=== PATIENT | female | born 1970 | race Caucasian/White ===

== ENCOUNTER 2016-10-01 18:59 | Emergency (ER) | payer OTHER ==
[~2016-10-01] VITALS: Wt 45.4 kg
[~2016-10-01 18:59] MED LIST: ACETAMINOPHEN325 MG PEG; ALBUTEROL 3 ML 33 ML INH; ALBUTEROL2.5 MG/0.5 INH; ARTIFICIAL TEAR15 M1 OPH; ARTIFICIAL TEAR15 M1 OU; BACLOFEN10 MG PEG; BACTROBAN22 TP; CEFEPIME2 GM/100 M IV; CEPHULAC10 GM/15 M PEG; CEPHULAC10 GM/151 PO; CIPRO500 MG PO; CIPROFLOXA500 MG/5 M PO; CLARITIN10 MG PO; DUONEB 3 MG/3 ML3 M1 INH; FORTAZ1 GM IV; JEVITY 1.2 CAL240 ML PEG; JEVITY CAL GT; JEVITY CAL PO; KENALOG0.5% T; KEPPRA1000 MG PEG; KEPPRA500 MG PO; LACTULOSE10 GM/15 M PO; LEVETIRACETAM1000 MG PO; LIORESAL10 MG PO; LOPRESSOR25 MG PO; LOVENOX30 MG/0.3 SC; Lovenox40 MG/0.4 SC; MERREM IV1 GM IV; METAMUCIL1 PDR PO; METAMUCIL1 WAF PEG; MOM30 ML PEG; MOTRIN100 MG/5 M PEG; MOTRIN600 MG PO; NEBCIN40 MG/ML IV; NORMAL SALINE1000 M1 IV; POTASSIUM20 MEQ PEG; POTASSIUM25 MEQ PO; SOLU-MEDROL40 MG IV; TOBRADEX 0.1%-01 OI1 OS; TOBRAMYCIN IV; TYLENOL325 M1 PEG; VITAMIN D32000 I1; VITAMIN D32000 I1 PO; VITAMINS & MINE1 TAB PEG; ZOSYN 3.373.375 GM/5 IV; ZYVOX600 MG PO
[2016-10-01 19:10] VITALS: BP 140/82
== END 2016-10-01 19:42 | disposition home or self-care (01) ==
LOC: ED 18:59
DX: K94.23 Gastrostomy malfunction (principal); Z88.0 Allergy status to penicillin; Z88.2 Allergy status to sulfonamides; Z88.8 Allergy status to other drugs, medicaments and biological substances; Z79.899 Other long term (current) drug therapy

== ENCOUNTER 2016-10-03 07:30 | Emergency (ER) | payer OTHER ==
[~2016-10-03] VITALS: Wt 63.5 kg
[2016-10-03 07:38] VITALS: BP 125/75
== END 2016-10-03 12:29 | disposition home or self-care (01) ==
LOC: ED 07:30
DX: K94.23 Gastrostomy malfunction (principal); Z88.0 Allergy status to penicillin; Z88.2 Allergy status to sulfonamides; Z88.8 Allergy status to other drugs, medicaments and biological substances; Z79.899 Other long term (current) drug therapy

== ENCOUNTER 2017-04-09 16:51 | Emergency (ER) | payer OTHER ==
[~2017-04-09] VITALS: Wt 61.2 kg
[2017-04-09 17:46] LABS: BASO # 0.1 10*3/uL (0.0-0.1); BASO % 0.6 % (0.0-1.0); EOS # 0.4 10*3/uL (0.0-0.4); EOS % 2.9 % (1.0-4.0); HEMATOCRIT 39.8 % (37.0-47.0); HEMOGLOBIN 12.4 g/dl (12.0-16.0); LYMPH # 2.6 10*3/uL (1.3-4.4); LYMPH % 19.4 % (27.0-41.0); MEAN CELL VOLUME 85.4 fl (81.0-99.0); MEAN CORPUSCULAR HGB 26.6 pg (27.0-31.0); MEAN CORPUSCULAR HGB CONC 31.2 g/dl (33.0-37.0); MEAN PLATELET VOLUME 10.2 fl (9.6-12.3); MONO # 0.9 10*3/uL (0.1-1.0); MONO % 6.5 % (3.0-9.0); NEUT # 9.3 10*3/uL (2.3-7.9); NEUT % 69.8 % (47.0-73.0); PLATELET COUNT AUTOMATED 507 10*3/uL (130-400); RED BLOOD COUNT 4.66 10*6/uL (4.10-5.10); RED CELL DISTRI WIDTH 15.7 % (0-14.5); WHITE BLOOD COUNT 13.3 10*3/uL (4.8-10.8)
[2017-04-09 18:03] LABS: ALBUMIN 3.2 gm/dl (3.1-4.5); ALKALINE PHOSPHATASE 105 U/L (45-117); BUN 10 mg/dl (7-24); CHLORIDE 98 mmol/L (98-107); CREATININE 0.49 mg/dL (0.55-1.02); POTASSIUM 3.9 mmol/L (3.5-5.1); SGOT/AST 43 IU/L (3-35); SGPT/ALT 32 U/L (12-78); SODIUM 136 mmol/L (136-145); TOTAL PROTEIN 9.6 gm/dL (6.4-8.2)
[2017-04-09 19:43] LABS: BILIRUBIN NEGATIVE (NEGATIVE); BLOOD 3+ (NEGATIVE); CLARITY CLOUDY (CLEAR); COLOR YELLOW (YELLOW); GLUCOSE NEGATIVE (NEGATIVE); KETONE NEGATIVE (NEGATIVE); LEUKO ESTERASE 3+ (NEGATIVE); NITRITE NEGATIVE (NEGATIVE); PH 7.5 (5.0-9.0); UROBILINOGEN 0.2 E.U./dl (0.2-1.0)
[2017-04-09 19:51] VITALS: BP 142/84
[2017-04-09 19:59] LABS: BACTERIA 3+; WBC 31-40 wbc/hpf (0-5)
[2017-04-09] MEDS ORDERED: CIPRO500 MG/5 M PO (20:12)
== END 2017-04-09 20:21 | disposition home or self-care (01) ==
LOC: ED 16:51
PROVIDERS: Physician Assistant
DX: N39.0 Urinary tract infection, site not specified (principal); R31.9 Hematuria, unspecified; Z79.899 Other long term (current) drug therapy; Z88.0 Allergy status to penicillin; Z88.2 Allergy status to sulfonamides; Z88.8 Allergy status to other drugs, medicaments and biological substances; Z88.6 Allergy status to analgesic agent

== ENCOUNTER 2017-07-28 21:36 | Emergency (ER) | payer OTHER ==
[~2017-07-28] VITALS: Ht 160 cm; Wt 62.6 kg
[2017-07-28 21:36] VITALS: BP 142/89
[~2017-07-28 21:36] MED LIST changes: +CIPRO500 MG/5 M PO
== END 2017-07-28 22:30 | disposition home or self-care (01) ==
LOC: ED 21:36
DX: K94.23 Gastrostomy malfunction (principal); Z79.899 Other long term (current) drug therapy; Z88.0 Allergy status to penicillin; Z88.2 Allergy status to sulfonamides; Z88.6 Allergy status to analgesic agent; Z88.8 Allergy status to other drugs, medicaments and biological substances

== ENCOUNTER 2018-04-03 14:16 | Emergency (ER) | payer OTHER ==
[~2018-04-03] VITALS: Wt 63.5 kg
[2018-04-03 14:19] VITALS: BP 139/94
== END 2018-04-03 15:51 | disposition home or self-care (01) ==
LOC: ED 14:16
DX: K94.29 Other complications of gastrostomy (principal); Z88.0 Allergy status to penicillin; Z88.2 Allergy status to sulfonamides; Z88.8 Allergy status to other drugs, medicaments and biological substances; Z88.6 Allergy status to analgesic agent; Z79.899 Other long term (current) drug therapy; Z93.0 Tracheostomy status

== ENCOUNTER 2019-06-23 16:13 | Inpatient (IN) | payer OTHER ==
[~2019-06-23] VITALS: Ht 160 cm; Wt 51.3 kg
[2019-06-23 16:18] VITALS: BP 133/97
[2019-06-23 17:13] LABS: BASO # 0.1 10*3/uL (0.0-0.1); BASO % 0.8 % (0.0-1.0); EOS # 0.3 10*3/uL (0.0-0.4); HEMATOCRIT 41.6 % (37.0-47.0); HEMOGLOBIN 12.8 g/dl (12.0-16.0); LYMPH # 2.8 10*3/uL (1.3-4.4); LYMPH % 19.5 % (27.0-41.0); MEAN CELL VOLUME 87.4 fl (81.0-99.0); MEAN CORPUSCULAR HGB 26.9 pg (27.0-31.0); MEAN CORPUSCULAR HGB CONC 30.8 g/dl (33.0-37.0); MEAN PLATELET VOLUME 10.6 fl (9.6-12.3); MONO # 0.8 10*3/uL (0.1-1.0); MONO % 5.7 % (3.0-9.0); NEUT # 10.2 10*3/uL (2.3-7.9); PLATELET COUNT AUTOMATED 521 10*3/uL (130-400); RED BLOOD COUNT 4.76 10*6/uL (4.10-5.10); WHITE BLOOD COUNT 14.3 10*3/uL (4.8-10.8)
[2019-06-23 17:23] LABS: ACT PARTIAL THROMBO TIME 25.2 SECONDS (20.0-32.1)
[2019-06-23 17:30] LABS: ALBUMIN 3.2 gm/dl (3.1-4.5); ALKALINE PHOSPHATASE 110 U/L (45-117); BUN 11 mg/dl (7-24); CHLORIDE 103 mmol/L (98-107); CREATININE 0.57 mg/dL (0.55-1.02); LIPASE 151 U/L (73-393); POTASSIUM 4.2 mmol/L (3.5-5.1); SGOT/AST 11 IU/L (3-35); SGPT/ALT 18 U/L (12-78); SODIUM 135 mmol/L (136-145); TOTAL PROTEIN 9.8 gm/dL (6.4-8.2)
[2019-06-23 17:34] LABS: TROPONIN I < 0.015 ng/ml (<0.045)
--- NOTE | 2019-06-23 19:58 | NUR ---
MEDIPORT ACCESSED WITHOUT DIIFICULTY. FLUSHES FREELY, NO BLOOD RETURN. FAMILY REPORTS THAT IT IS FLUSHED EVERY 6 WEEKS, BUT DOES NOT HAVE RETURN. PROVIDER AWARE.
[2019-06-23 20:00] VITALS: BP 145/89
[2019-06-23 21:45] VITALS: BP 145/89
--- NOTE | 2019-06-23 21:45 | NUR ---
A 49, admitted to , under the services of AMANDA Ingram DO with a diagnosis of PNEUMONIA. Chief complaint is COUGH, CONGESTION. Patient arrived via wheel chair from ER. Monitor applied. Initial assessment completed. Vital signs taken and recorded. AMANDA INGRAM DO notified of admission to the unit. Orders received. See assessment for past medical history, medications and allergies. Patient and/or family oriented to unit. [facility] visitation policy reviewed. Clothing/patient valuable form completed. RAJENDRA COY
--- NOTE | 2019-06-23 23:30 | NUR ---
SPOKE TO DR. MCNEAL EARLIER & ORDER RECEIVED TO PUT IN ORDER FOR WOUND DRESSING.
[2019-06-24] VITALS: BP 140/79
--- NOTE | 2019-06-24 01:05 | NUR ---
06/23/19 23:10 PT HAS 6 SHILEY TRACH. PLACED ON 35% BOWEN, SUCTIONED FOR MODERATE AMOUNT OF THICK CLEAR SECRETIONS AND GIVEN DUONEB TX PER ORDER.
--- NOTE | 2019-06-24 02:08 | NUR ---
MEDS GIVEN EARLIER & JEVITY GIVEN PER M.D. ORDERS.
--- NOTE | 2019-06-24 03:50 | NUR ---
ORDERED RECEIVED FOR WOUND CARE ORDERS.
--- NOTE | 2019-06-24 06:27 | NUR ---
SLOAN ANGELA [id number] Please refer to the physician's history and physical for past medical history, comorbid conditions, and allergies. Diagnosis: RIGHT LOWER LOBE PNEUMONIA Ryan Score: 11,HIGH RISK WOUND DESCRIPTIONS: Wound Number: 1 Location of the wound: coccyx Type of wound: stage 2 Thickness: Partial Size: 0.2cm x 1.0cm x 0.1cm Tunneling: none Undermining: none Sinus Tract: none Presence of Exudate: Serosanguineous Amount: Light Color: Red Odor: None Periwound Skin Appearance: Scar Wound edges: approximated Pain (associated with wound): none at time of assessment How does patient state this happened? pt unable to state how this happened Wound Number: 2 Location of the wound: right buttocks Type of wound: deep tissue pressure injury Size: 3.0cm x 3.5cm x <0.1cm Tunneling: none Undermining: none Sinus Tract: none Presence of Exudate: none Amount: None Color: Purple, dark red Odor: None Periwound Skin Appearance: Normal Wound edges: closed Pain (associated with wound): none at time of assessment How does patient state this happened? pt unable to state how this happened Surface the patient is resting on: Isoflex SKIN PREVENTION RECOMMENDATION: 1. Pressure redistribution support surface as appropriate 2. Elevate heels 3. Remove boots/TEDS every shift and reapply 4. Head of bed 30 degrees as tolerated 5. Assess nutrition and hydration 6. Manage moisture 7. Avoid the use of containment devices while in bed 8. Use absorptive products on surfaces limit layers of linens on bed 9. Turn and reposition every 1-2 hours in bed and every 1 hour in chair as tolerated 10. Weight shifts every 15 minutes while up in chair 11. Offloading with pillows or device to keep heels elevated off bed 12. Monitor skin at least every shift 13. Inspect under medical devices twice a day WOUND TREATMENT RECOMMENDATIONS: Cleanse coccyx and right buttocks with soap and water and apply calazime every shift and prn for soiling. Wheelchair cushion when oob Heel raiser pro boots to bilateral feet while in bed.
[2019-06-24 07:43] LABS: BASO # 0.1 10*3/uL (0.0-0.1); BASO % 0.5 % (0.0-1.0); EOS # 0.4 10*3/uL (0.0-0.4); EOS % 3.5 % (1.0-4.0); HEMATOCRIT 38.7 % (37.0-47.0); HEMOGLOBIN 11.7 g/dl (12.0-16.0); LYMPH # 2.8 10*3/uL (1.3-4.4); LYMPH % 24.7 % (27.0-41.0); MEAN CELL VOLUME 88.4 fl (81.0-99.0); MEAN CORPUSCULAR HGB 26.7 pg (27.0-31.0); MEAN CORPUSCULAR HGB CONC 30.2 g/dl (33.0-37.0); MONO # 0.7 10*3/uL (0.1-1.0); MONO % 6.6 % (3.0-9.0); NEUT # 7.2 10*3/uL (2.3-7.9); NEUT % 63.5 % (47.0-73.0); PLATELET COUNT AUTOMATED 443 10*3/uL (130-400); RED BLOOD COUNT 4.38 10*6/uL (4.10-5.10); WHITE BLOOD COUNT 11.3 10*3/uL (4.8-10.8)
--- NOTE | 2019-06-24 07:50 | NUR ---
Dr. Kramer notified of wound care recommendations.
[2019-06-24 08:00] VITALS: BP 114/70
[2019-06-24 08:05] LABS: BUN 11 mg/dl (7-24); CHLORIDE 104 mmol/L (98-107); CHOLESTEROL 187 mg/dL (<200); CREATININE 0.64 mg/dL (0.55-1.02); HDL CHOLESTEROL 25 mg/dl (40-60); LDL CHOLESTEROL 86 mg/dL (9-159); PHOSPHOROUS 3.3 mg/dL (2.5-4.9); POTASSIUM 3.5 mmol/L (3.5-5.1); SODIUM 139 mmol/L (136-145); TRIGLYCERIDES 381 mg/dl (<150); VLDL CHOLESTEROL 76 mg/dL (6-40)
[2019-06-24 08:28] LABS: VITAMIN D, 25-HYDROXY 31.5 ng/mL (30-100)
--- NOTE | 2019-06-24 09:32 | NUR ---
ORDERED SPUTUM ON PT. RT COLLECTED FOR SPUTUM C & S. SPECIMAN SENT TO INDUSTRIAL SALES ENGINEER NOTIFIED
[2019-06-24 12:00] VITALS: BP 146/79
--- NOTE | 2019-06-24 13:55 | NUR ---
Geophysical Drafter in to talk to patient. Patient states lives at home with mom. There are no steps in the home. Physician: markus jaimes Pharmacy: [facility] Home health services: none Patient's level of ADLs: BEDFAST Patient has working utilities: all working DME: Follow-up physician's appointment after d/c: will be made by hospitalist nurse director upon discharge Does patient want to access PORTAL?: no Discharge plan discussed with patient's sister, patient is non verbal, sister stated patient lives at home with her mom, mom is her caregiver, discussed with them VNA or possilby a short term skilled, sister stated her mom would not allow her to go to a SNF and they she didn't need any home services or help at this time, case mangement will follow. MARK LOU
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
[2019-06-24 16:00] VITALS: BP 138/80
--- NOTE | 2019-06-24 19:20 | NUR ---
PT LYING IN BED AT THIS TIME. IV FLUIDS INFUSING INTO MEDIPORT WITHOUT DIFFICULTY. NO S/S OF DISTRESS. PT MOTHER AT BEDSIDE. NO CONCERNS VOICED. PT CALL LIGHT IN REACH.
[2019-06-24 20:00] VITALS: BP 131/82
--- NOTE | 2019-06-24 21:00 | NUR ---
PT LYING IN BED AT THIS TIME. MOTHER AT BEDSIDE. NO COMPLAINTS. CALL LIGHT IN REACH.
--- NOTE | 2019-06-24 23:00 | NUR ---
PT LYING IN BED. NO S/S OF DISTRESS. MOTHER AT BEDSIDE. NO COMPLAINTS VOICED.
[2019-06-25] VITALS: BP 142/88
--- NOTE | 2019-06-25 01:05 | NUR ---
WOUND ORDERS RECIEVED FROM DR. JORGENSEN
--- NOTE | 2019-06-25 02:00 | NUR ---
PT RESTING IN BED. MOTHER AT BEDSIDE. NO COMPLAINTS VOICED.
--- NOTE | 2019-06-25 04:19 | NUR ---
Mother states that she will continue for patient when she returns home and doesn't wish for patient to follow up in an outpatient facility at this time for wound care.
--- NOTE | 2019-06-25 05:34 | NUR ---
JULIO CÉSARSLOAN [id number] Please refer to the physician's history and physical for past medical history, comorbid conditions, and allergies. Diagnosis: RIGHT LOWER LOBE PNEUMONIA Ryan Score: 11,HIGH RISK WOUND DESCRIPTIONS: Wound Number: 1 Location of the wound: right great toe Type of wound: skin tear Thickness: Partial Size: 0.8cm x 0.2cm x 0.1cm Tunneling: none Undermining: none Sinus Tract: none Presence of Exudate: none Amount: None Color: Red Odor: None Periwound Skin Appearance: Normal Wound edges: approximated Pain (associated with wound): none at time of assessment How does patient state this happened? pts mother stated this was from putting socks on Surface the patient is resting on: Position Pro SKIN PREVENTION RECOMMENDATION: 1. Pressure redistribution support surface as appropriate 2. Elevate heels 3. Remove boots/TEDS every shift and reapply 4. Head of bed 30 degrees as tolerated 5. Assess nutrition and hydration 6. Manage moisture 7. Avoid the use of containment devices while in bed 8. Use absorptive products on surfaces limit layers of linens on bed 9. Turn and reposition every 1-2 hours in bed and every 1 hour in chair as tolerated 10. Weight shifts every 15 minutes while up in chair 11. Offloading with pillows or device to keep heels elevated off bed 12. Monitor skin at least every shift 13. Inspect under medical devices twice a day WOUND TREATMENT RECOMMENDATIONS: Continue skin tear guidelines to right great toe.
[2019-06-25 07:33] LABS: BASO # 0.1 10*3/uL (0.0-0.1); BASO % 0.6 % (0.0-1.0); EOS # 0.5 10*3/uL (0.0-0.4); EOS % 3.9 % (1.0-4.0); HEMATOCRIT 39.6 % (37.0-47.0); LYMPH # 2.9 10*3/uL (1.3-4.4); LYMPH % 23.8 % (27.0-41.0); MEAN CELL VOLUME 87.2 fl (81.0-99.0); MEAN CORPUSCULAR HGB 26.4 pg (27.0-31.0); MEAN CORPUSCULAR HGB CONC 30.3 g/dl (33.0-37.0); MEAN PLATELET VOLUME 11.9 fl (9.6-12.3); MONO # 0.9 10*3/uL (0.1-1.0); MONO % 7.1 % (3.0-9.0); NEUT # 7.8 10*3/uL (2.3-7.9); NEUT % 63.5 % (47.0-73.0); PLATELET COUNT AUTOMATED 375 10*3/uL (130-400); RED BLOOD COUNT 4.54 10*6/uL (4.10-5.10); RED CELL DISTRI WIDTH 14.9 % (0-14.5); WHITE BLOOD COUNT 12.3 10*3/uL (4.8-10.8)
[2019-06-25 08:00] VITALS: BP 136/70
--- NOTE | 2019-06-25 08:44 | NUR ---
Dr. Kramer notified of wound care recommendations.
--- NOTE | 2019-06-25 09:00 | NUR ---
PATIENT LYING IN BED. NO DISTRESS NOTED. MOTHER PRESENT AT BEDSIDE. VITAL SIGNS STABLE. LUNGS DIMINISHED WITH SOME SCATTERED FAINT RHONCHI. THICK, CLEAR MUCOUS PRESENTED FROM TRACH WITH COUGH. PEG TUBE PATIENT TO ABD WITH DRSG DRY/INTACT. NO EDEMA NOTED, BILAT FOOT DROP NOTED. PATIENT INCONTIENT AND WEARING BRIEF. BED ALARM ON.
--- NOTE | 2019-06-25 09:00 | NUR ---
case management visits with patient, family present, she will return home with mom when medically stable, mom declines any home services at this time
[2019-06-25 12:00] VITALS: BP 130/85; BP 135/54
[2019-06-25 16:00] VITALS: BP 127/78
--- NOTE | 2019-06-25 16:00 | NUR ---
PATIENT LYING IN BED, TURN & REPOSITION, CALAZIME CREAM APPLIED TO BUTTOCKS. MOTHER PRESENT AT BEDSIDE. NO DISTRESS NOTED.
--- NOTE | 2019-06-25 19:30 | NUR ---
TUBE FFED FINISHED AT THIS TIME, PATIENT RETAINED ALL. PLACEMENT CONFIRMED WITH AIR BOLUS, PEG-TUBE FLUSED WITH 130CC H2O FREE FLOW. CALL LIGTH WITHIN REACH
[2019-06-25 20:00] VITALS: BP 124/79
[2019-06-26] VITALS: BP 146/87
--- NOTE | 2019-06-26 01:00 | NUR ---
PATIENT TOLERATED TUBE FEED AT THIS TIME. NO DISTRESS NOTED. PLACEMENT VERIFIED BY AIR BOLUS. CALL LIGHT WITHIN REACH
--- NOTE | 2019-06-26 03:47 | NUR ---
24 HR chart check completed.
[2019-06-26 07:28] LABS: BASO # 0.1 10*3/uL (0.0-0.1); BASO % 0.6 % (0.0-1.0); EOS # 0.5 10*3/uL (0.0-0.4); EOS % 3.6 % (1.0-4.0); HEMATOCRIT 38.1 % (37.0-47.0); HEMOGLOBIN 11.4 g/dl (12.0-16.0); LYMPH % 21.4 % (27.0-41.0); MEAN CELL VOLUME 88.2 fl (81.0-99.0); MEAN CORPUSCULAR HGB 26.4 pg (27.0-31.0); MEAN CORPUSCULAR HGB CONC 29.9 g/dl (33.0-37.0); MONO # 1.1 10*3/uL (0.1-1.0); MONO % 7.8 % (3.0-9.0); NEUT % 65.4 % (47.0-73.0); PLATELET COUNT AUTOMATED 384 10*3/uL (130-400); RED BLOOD COUNT 4.32 10*6/uL (4.10-5.10); WHITE BLOOD COUNT 13.8 10*3/uL (4.8-10.8)
--- NOTE | 2019-06-26 07:45 | NUR ---
IN PT ROOM AT THIS TIME TO COMPLETE ASSESSMENT. PT MOTHER IS PRESENT AND SPEAKS FOR HER AND TAKES CARE OF HER WELL. SHE NOTES THAT THEY DO NO NEED ANYTHING AT THIS TIME. PT LEGS ARE SHAKING BILATERALLY, MOTHER THINKS THAT SHE IS JUST UNCOMFORTABLE IN THIS BED. CALL LIGHT IS WITHIN REACH, AND PT MOTHER KNOWS IF SHE NEEDS ANYTHING OR THE PATIENT TO CALL. WILL CONTINUE TO MONITOR
[2019-06-26 08:00] VITALS: BP 134/75
--- NOTE | 2019-06-26 09:00 | NUR ---
TRACH CARE COMPLETED. INNER CANNULA CHANGED. TRACH TIE CHANGED. PT SXD FOR MODERATE AMOUNT OF LIGHT YELLOW SPUTUM. TRACH DRESSING APPLIED.PT COUGHED ALOT BUT OTHERWISE TOLERATED WELL. SAT 98% HR 91. MOTHER PRESENT.
[2019-06-26] MEDS ORDERED: ERTAPENEM1 GM IV (11:09)
--- NOTE | 2019-06-26 11:34 | NUR ---
CALLED [employer] FOR [employer]AG[employer] NEEDED FOR PEG TUBE FEEDING. THEY STATE THAT A ORDER NEEDS TO BE PLACED FOR THIS, SHE IS GOING TO TALK TO ANOTHER PERSON IN [employer] AND GET BACK TO ME
--- NOTE | 2019-06-26 11:43 | NUR ---
CASE MANAGEMENT ON THE FLOOR AND STATES THAT DR ELLER WANTS THE PT SENT HOME ON IV ANTIBIOTICS. SHE WENT IN TO PT ROOM TO DISCUSS THIS WITH THE PATIENTS MOTHER AND TALKED ABOUT GETTING A HOME NURSE TO HELP WITH THE IV MEDICATIONS
[2019-06-26 12:00] VITALS: BP 153/83
--- NOTE | 2019-06-26 12:02 | NUR ---
PT LEAVING THE FLOOR AT THIS TIME IN A WHEEL CHAIR, OXYGEN IS ON, PT IS WITH HIS DAUGHTER WHO IS DRIVING HIM. ALL BELONGINGS WITH THE PATIENT
--- NOTE | 2019-06-26 12:06 | NUR ---
case management received a message that patient would need iv antibiotics at home, contacted Marti at [facility] and faxed patient's orders, also talked with patient's mom regarding home health, she wanted [facility] to follow, called [facility] and spoke to Felipa, she took patient's information and will call case management back if they are able to take patient
--- NOTE | 2019-06-26 13:00 | NUR ---
PT TOLERATED TUBE FEEDING. PLACEMENT VERIFIED BY AIR BOLUS. PT RESTING AFTER FEEDING, WILL CONTINUE TO TOLERATE
--- NOTE | 2019-06-26 15:09 | NUR ---
Shift chart check completed.
--- NOTE | 2019-06-26 15:11 | NUR ---
[facility] were unable to see patient at home, contacted My at [facility] they will be able to see patient at home. talked to Marti from [facility], everything is ok for services to start with patient tomorrow, Marti from [facility] will contact patient's mom and make arrangements to deliver the iv antibiotics, patient's nurse notified
--- NOTE | 2019-06-26 15:30 | NUR ---
SPOKE TO DR TIM REGARDING ZOSYN THAT THE PATIENT HAS RUNNING. PT CHART STATES THAT SHE HAS A PENECILLIN ALLERGY. PT MOTHER STATES THAT 23 YEARS AGO A DOCTOR HAD SAID SHE MAY HAVE A PENECLLIN ALLERGY, SO THEY HAVE JUST WENT ALONG WITH THAT. SHE DENIES THE PT EVER HAVING A REACTION TO PENECILLIN PRIOR, SHE ALSO STATES THAT DR TOM STATED 3 YEARS AGO THAT THE PATIENT DOES NOT HAVE AN ALLERGY TO PENECILLIN. DR TIM STATES TO CONTINUE RUNNING THE ANTIBIOTIC AND HE IS GOING TO CHECK WITH PHARMACY TO SEE HOW THIS WAS NOT FLAGGED AN ALLERGY. PT IS ASYMPTOMATIC AT THIS TIME
--- NOTE | 2019-06-26 15:49 | NUR ---
DR NEGRON NOTIFIED THAT THE PT MOTHER OUT TO THE DESK STATING SHE WOULD FEEL MORE COMFORTABLE HAVING THE PATIENT TAKEN OFF THE ANTIBIOTIC. SHE AGAIN STATES THAT SHE HAS NEVER HAD AN ALLERGY TO THIS MEDICATION BEFORE. SHE WAS GIVEN IT ACCIDENTALY 3 YEARS AGO AND NEVER HAD AN ALLERGIC REACTION TO IT, BUT WOULD JUST FEEL SAFER TAKING HER OFF OF THE MEDICATION
[2019-06-26 16:00] VITALS: BP 134/78
--- NOTE | 2019-06-26 18:40 | NUR ---
PT TOLERATED TUBE FEEDING AT THIS TIME WITH NO DISTRESS NOTED. PLACEMENT VERIFIED BY AIR BOLUS. CALL LIGHT WITHIN REACH, WILL CONTINUE TO MONITOR
[2019-06-26 20:00] VITALS: BP 125/79
[2019-06-27] VITALS: BP 146/92
--- NOTE | 2019-06-27 01:00 | NUR ---
UZMA TOLERATED PEG-TUBE FEEDING WELL. TUBE PLACEMENT VERIFIED BY AIR BOLUS/AUSCULTATED. PATIENT RETAINED ALL FEED. NO DISTRESS NOTED. CALL LIGHT WITHIN REACH. PATIENT'S MOM AT BEDSIDE
--- NOTE | 2019-06-27 05:01 | NUR ---
24 HR chart check completed.
[2019-06-27 07:21] LABS: BASO % 0.4 % (0.0-1.0); EOS # 0.5 10*3/uL (0.0-0.4); EOS % 4.2 % (1.0-4.0); HEMATOCRIT 36.7 % (37.0-47.0); HEMOGLOBIN 11.2 g/dl (12.0-16.0); LYMPH # 1.7 10*3/uL (1.3-4.4); LYMPH % 14.7 % (27.0-41.0); MEAN CELL VOLUME 87.4 fl (81.0-99.0); MEAN CORPUSCULAR HGB 26.7 pg (27.0-31.0); MEAN CORPUSCULAR HGB CONC 30.5 g/dl (33.0-37.0); MEAN PLATELET VOLUME 11.4 fl (9.6-12.3); MONO # 1.1 10*3/uL (0.1-1.0); MONO % 9.5 % (3.0-9.0); NEUT % 70.1 % (47.0-73.0); PLATELET COUNT AUTOMATED 350 10*3/uL (130-400); RED CELL DISTRI WIDTH 15.4 % (0-14.5); WHITE BLOOD COUNT 11.3 10*3/uL (4.8-10.8)
[2019-06-27 07:32] LABS: CREATININE 0.43 mg/dL (0.55-1.02)
--- NOTE | 2019-06-27 09:57 | NUR ---
CALLED DR RIDDLE PER MEDICATION OF POTASSIUM BEING PO BUT WITHT HE PT HAVING A PEG TUBE THAT IS A MEDICATION THAT CAN NOT BE CRUSHED, HE NOTES HE WILL CHANGE THE ORDER
[2019-06-27 12:00] VITALS: BP 134/81
--- NOTE | 2019-06-27 12:25 | NUR ---
DR ELLER ON THE FLOOR AND STATES THAT THE PATIENT IS CLEARED ON HIS END TO BE DISCHARGED. CALLED DR RIDDLE TO RELAY THE MESSAGE
--- NOTE | 2019-06-27 13:19 | NUR ---
IN PT ROOM AT THIS TIME REMOVED PT IV. WENT OVER DISCHARGE INSTRUCTIONS WITH THE PATIENTS MOTHER, SHE STATES SHE HAS NO QUESTIONS AT THIS TIME. SHE NOTES THAT HER SISTER IS COMING IN TO HELP GET THE PATIENT DRESSED AND MAY NEED HELP WITH A CECILLE FOR GETTING HER IN THE WHEELCHAIR. PT MOTHER STATES THAT SHE WILL CARE FOR THE WOUND ON HER TOE AND CONTINUE TAKING CARE OF HER BUTTOCK WHERE IT WAS RED, THAT IT LOOKS A LOT BETTER AND IS ALMOST GONE, SHE STATES THERES NO NEED TO MOVE THE PT AND GET PICTURE OF THE SITE. WILL CONTINUE TO MONITOR THE PATIENT UNTIL SHE LEAVES AND HELP ANY WAS POSSIBLE WITH LOADING THE PATIENT UP
--- NOTE | 2019-06-27 13:58 | NUR ---
USED CECILLE TO LOAD PATIENT INTO WHEELCHAIR. PT MOTHER AND HER SISTER ARE PRESENT AND HAVE ALL OF HER BELONGINGS. NO FURTHER QUESTIONS AT THIS TIME, THEY ARE AWARE THAT [facility] WILL FOLLOW UP WITH THEM AT HOME FOR IV ANTIBIOTICS
--- NOTE | 2019-06-27 14:01 | NUR ---
PT IS LEAVING THE FLOOR AT THIS TIME WITH ALL OF HER BELONGINGS
== END 2019-06-27 14:01 | disposition home or self-care (01) | DRG 871 ==
LOC: ED 16:13 → 4E 19:45 → EDHOLD 19:45 → 4E 20:41
PROVIDERS: Internal Medicine; Nurse Practitioner Family; ADMIT Internal Medicine
DX: A41.9 Sepsis, unspecified organism (principal); J15.1 Pneumonia due to Pseudomonas; E87.1 Hypo-osmolality and hyponatremia; E44.1 Mild protein-calorie malnutrition; G82.20 Paraplegia, unspecified; D47.3 Essential (hemorrhagic) thrombocythemia; E83.41 Hypermagnesemia; E66.3 Overweight; M62.838 Other muscle spasm; G40.909 Epilepsy, unspecified, not intractable, without status epilepticus; K59.00 Constipation, unspecified; J45.909 Unspecified asthma, uncomplicated; B96.5 Pseudomonas (aeruginosa) (mallei) (pseudomallei) as the cause of diseases classified elsewhere; R13.19 Other dysphagia; Z68.20 Body mass index [BMI] 20.0-20.9, adult; Z93.0 Tracheostomy status; Z88.1 Allergy status to other antibiotic agents; Z88.0 Allergy status to penicillin; Z88.8 Allergy status to other drugs, medicaments and biological substances; Z79.899 Other long term (current) drug therapy; Z80.8 Family history of malignant neoplasm of other organs or systems; Z83.49 Family history of other endocrine, nutritional and metabolic diseases

== ENCOUNTER 2019-06-29 16:19 | Emergency (ER) | payer OTHER ==
[~2019-06-29] VITALS: Ht 162.5 cm; Wt 59.0 kg
[~2019-06-29 16:19] MED LIST changes: +ERTAPENEM1 GM IV
[2019-06-29 16:29] VITALS: BP 137/83
== END 2019-06-29 20:50 | disposition home or self-care (01) ==
LOC: ED 16:19
DX: T82.898A Other specified complication of vascular prosthetic devices, implants and grafts, initial encounter (principal); H57.89 Other specified disorders of eye and adnexa; Z88.2 Allergy status to sulfonamides; Z88.6 Allergy status to analgesic agent; Z88.8 Allergy status to other drugs, medicaments and biological substances; Z79.899 Other long term (current) drug therapy; Z93.1 Gastrostomy status; Z93.0 Tracheostomy status; Y84.8 Other medical procedures as the cause of abnormal reaction of the patient, or of later complication, without mention of misadventure at the time of the procedure; Y92.89 Other specified places as the place of occurrence of the external cause

== ENCOUNTER 2019-08-17 15:01 | Emergency (ER) | payer OTHER ==
[~2019-08-17] VITALS: Ht 160 cm; Wt 58.1 kg
[2019-08-17 15:09] VITALS: BP 154/90
== END 2019-08-17 16:08 | disposition home or self-care (01) ==
LOC: ED 15:01
DX: K94.23 Gastrostomy malfunction (principal); Z88.2 Allergy status to sulfonamides; Z88.6 Allergy status to analgesic agent; Z88.8 Allergy status to other drugs, medicaments and biological substances; Z79.899 Other long term (current) drug therapy; Z86.14 Personal history of Methicillin resistant Staphylococcus aureus infection; Y84.8 Other medical procedures as the cause of abnormal reaction of the patient, or of later complication, without mention of misadventure at the time of the procedure; Y82.8 Other medical devices associated with adverse incidents

== ENCOUNTER 2020-07-11 19:05 | Emergency (ER) | payer OTHER ==
[~2020-07-11] VITALS: Wt 69.9 kg
[2020-07-11 19:45] VITALS: BP 116/72
== END 2020-07-11 19:59 | disposition home or self-care (01) ==
LOC: ED 19:05
DX: K94.23 Gastrostomy malfunction (principal); R56.9 Unspecified convulsions; Z88.8 Allergy status to other drugs, medicaments and biological substances; Z79.899 Other long term (current) drug therapy; Z88.2 Allergy status to sulfonamides

== ENCOUNTER 2021-03-11 16:57 | Emergency (ER) | payer OTHER ==
[~2021-03-11] VITALS: Ht 160 cm; Wt 54.4 kg
[2021-03-11 17:02] VITALS: BP 137/98
== END 2021-03-11 18:37 | disposition home or self-care (01) ==
LOC: ED 16:57
DX: K94.29 Other complications of gastrostomy (principal); E44.1 Mild protein-calorie malnutrition; G40.909 Epilepsy, unspecified, not intractable, without status epilepticus; J45.909 Unspecified asthma, uncomplicated; Z88.2 Allergy status to sulfonamides; Z88.6 Allergy status to analgesic agent; Z88.8 Allergy status to other drugs, medicaments and biological substances; Z79.899 Other long term (current) drug therapy